=== PATIENT | male | born 1975 | race Caucasian/White ===

== ENCOUNTER 2019-12-17 21:53 | Emergency (ER) | payer OTHER ==
[~2019-12-17] VITALS: Ht 177.8 cm; Wt 81.6 kg
[2019-12-17] MEDS ORDERED: CEFADROXIL500 M1 PO (23:18)
== END 2019-12-17 23:47 | disposition home or self-care (01) ==
LOC: ED 21:53
DX: L72.3 Sebaceous cyst (principal); L02.11 Cutaneous abscess of neck; F17.200 Nicotine dependence, unspecified, uncomplicated